=== PATIENT | male | born 1955 | race Caucasian/White ===

== ENCOUNTER 2023-10-06 15:01 | Emergency (ER) | payer MEDICARE | END 2023-10-06 16:19 | disposition home or self-care (01) | LOC: MADERS 15:01 | DX: S92.342A Displaced fracture of fourth metatarsal bone, left foot, initial encounter for closed fracture (principal); M92.72 Juvenile osteochondrosis of metatarsus, left foot; I10 Essential (primary) hypertension; Z79.899 Other long term (current) drug therapy; W55.22XA Struck by cow, initial encounter ==